=== PATIENT | male | born 1995 | race Caucasian/White ===

== ENCOUNTER 2019-04-28 21:04 | Emergency (ER) | payer BC ==
[2019-04-28 21:34] LABS: Rapid Strep Molecular Negative (Negative)
--- NOTE | 2019-04-28 23:14 | ED ---
Throat Pain/Nasal Congestion - HPI Summary HPI Summary: Patient is a 23 y/o M presenting to [facility] with chief complaint of sore throat. Sore throat onset last night, 04/27/19. He endorses some swollen cervical lymph nodes, fever and chills but denies cough, chest pain, and SOB. No PMHx is reported. He denies any daily medications. Patient has been taking ibuprofen and cough drops to treat Sx. 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 On triage, pain is rated 4/10. Home medications and allergies are reviewed. - History of Current Complaint Chief Complaint: EDThroatPain Time Seen by Provider: 04/28/19 22:56 Hx Obtained From: Patient Onset/Duration: Lasting Days, Still Present Severity: Moderate - 4/10 Associated Signs And Symptoms: Positive: Negative Cough: None - Allergies/Home Medications Allergies/Adverse Reactions: Allergies Allergy/AdvReac Type Severity Reaction Status Date / Time No Known Allergies Allergy Verified 04/28/19 21:06 PMH/Surg Hx/FS Hx/Imm Hx Sensory History: Denies: Hx Legally Blind, Hx Deafness Opthamlomology History: Denies: Hx Legally Blind EENT History: Denies: Hx Deafness Infectious Disease History: No Infectious Disease History: Denies: Traveled Outside the [place] in Last 30 Days - Family History Known Family History: Negative: Diabetes - Social History Occupation: Student Substance Use Type: Reports: None Smoking Status (MU): Never Smoked Tobacco Review of Systems Positive: Fever, Chills ENT: Other - positive - swollen cervical lymph nodes Positive: Sore Throat Negative: Chest Pain Negative: Shortness Of Breath, Cough All Other Systems Reviewed And Are Negative: Yes Physical Exam - Summary Physical Exam Summary: Appearance: Well-appearing, Well-nourished, lying in bed comfortably. Non-toxic in appearance and in no distress. Skin: Warm, dry, no obvious rash Eyes: sclera anicteric, no conjunctival pallor ENT: mucous membranes moist, pharynx appears mildly erythematous with vesiculation. Neck: Supple, nontender Respiratory: Clear to auscultation, no signs of respiratory distress Cardiovascular: Normal S1, S2. No murmurs. Normal distal pulses in tibial and radial bilaterally. Abdomen: Soft, nontender, normal active bowel sounds present Musculoskeletal: Normal, Strength/ROM Intact Neurological: A&Ox3, awake and alert, mentation is normal, speech is fluent and appropriate Psychiatric: affect is normal, does not appear anxious or depressed Triage Information Reviewed: Yes Vital Signs On Initial Exam: Initial Vitals Temp Pulse Resp BP Pulse Ox 101.3 F 91 16 141/78 99 04/28/19 21:07 04/28/19 21:07 04/28/19 21:07 04/28/19 21:07 04/28/19 21:07 Vital Signs Reviewed: Yes Procedures - Sedation Patient Received Moderate/Deep Sedation with Procedure: No Diagnostics - Vital Signs Vital Signs Temp Pulse Resp BP Pulse Ox 04/28/19 21:07 101.3 F 91 16 141/78 99 - Laboratory Lab Results: Lab Results 04/28/19 Range/Units 21:10 Group A Strep Rapid Negative (Negative) Lab Statement: Any lab studies that have been ordered have been reviewed, and results considered in the medical decision making process. EENT Course/Dx - Course Course Of Treatment: Patient is a 23 y/o M presenting to [facility] with chief complaint of sore throat. Sore throat onset last night, 04/27/19. He endorses some swollen cervical lymph nodes, fever and chills but denies cough, chest pain , and SOB. No PMHx is reported. He denies any daily medications. Patient has been taking ibuprofen and cough drops to treat Sx. Group A Rapid Strep was negative. He is non-toxic in appearance and in no distress. Pharynx appears mildly erythematous with vesiculation. Patient was diagnosed with pharyngitis and discharged to home. He will follow up with [facility] in four days if needed. - Diagnoses Provider Diagnoses: Pharyngitis Discharge ED - Sign-Out/Discharge Documenting (check all that apply): Patient Departure - discharge - Discharge Plan Condition: Stable Disposition: HOME Patient Education Materials: Pharyngitis (ED) Referrals: [facility] [Outside] - 4 Days (if not improving) - Billing Disposition and Condition Condition: STABLE Disposition: Home - Attestation Statements Document Initiated by Scribe: Yes Documenting Scribe: JEN CHARLTON Provider For Whom Scribe is Documenting (Include Credential): GABI GRACE MD Scribe Attestation: JEN Rios, scribed for GABI GRACE MD on 04/29/19 at 1844. Scribe Documentation Reviewed: Yes Provider Attestation: The documentation as recorded by the scribe, JEN CHARLTON accurately reflects the service I personally performed and the decisions made by me, GABI GRACE MD Status of Abilio Document: Viewed
[2019-04-28 23:35] VITALS: BP 106/65
== END 2019-04-28 23:33 | disposition home or self-care (01) ==
LOC: ED 21:04
DX: J02.9 Acute pharyngitis, unspecified (principal); R59.1 Generalized enlarged lymph nodes; R50.9 Fever, unspecified
CPT/HCPCS: 87651; 99282